=== PATIENT | male | born 1985 | race Caucasian/White ===

== ENCOUNTER 2018-12-12 04:49 | Emergency (ER) | payer OTHER ==
[2018-12-12 05:10] VITALS: BP 123/84; PULSE 73; RESP 20; TEMP 98.2
--- NOTE | 2018-12-12 06:59 | ED ---
ENT HPI - General Chief complaint: ENT Stated complaint: Swollen neck Time Seen by Provider: 12/12/18 05:08 Source: patient Mode of arrival: ambulatory Limitations: no limitations - History of Present Illness Initial comments: This patient is a 33-year-old man who presents to be evaluated for a lump that he had noted to the anterior of his neck. The patient states that it had come on for days ago and has been growing slowly over the ensuing 4 days. He states he also had another lengthy noted under the muscle on the right side of the neck. Patient also is having a little bit of pain when he would swallow and the lump was moved. He has not noted fever or chills, cough, dysphagia, any problem with speech or swallowing. MD complaint: sore throat, other Onset/Timin -: days(s) Location: throat Severity: mild Quality: dull Consistency: constant Improves with: none Worsens with: swallowing - Related Data Home Medications Medication Instructions Recorded Confirmed No Known Home Medications 12/12/18 12/12/18 Allergies Allergy/AdvReac Type Severity Reaction Status Date / Time No Known Allergies Allergy Verified 12/12/18 05:10 Review of Systems ROS Statement: Those systems with pertinent positive or pertinent negative responses have been documented in the HPI. ROS Other: All systems not noted in ROS Statement are negative. Constitutional: Denies: fever, chills ENT: Reports: throat pain. Denies: ear pain, congestion Respiratory: Denies: cough, dyspnea Cardiovascular: Denies: chest pain Skin: Denies: rash Neurological: Denies: headache Past Medical History Past Medical History: No Reported History History of Any Multi-Drug Resistant Organisms: None Reported Past Surgical History: Hernia Repair Past Psychological History: No Psychological Hx Reported Smoking Status: Current every day smoker Past Alcohol Use History: None Reported Past Drug Use History: None Reported General Exam Limitations: no limitations General appearance: alert, in no apparent distress Head exam: Present: atraumatic, normocephalic Eye exam: Present: normal appearance. Absent: scleral icterus, conjunctival injection ENT exam: Present: mucous membranes moist, TM's normal bilaterally, normal external ear exam, other (There is some mild injection of the pharynx.). Absent: normal oropharynx Neck exam: Present: normal inspection, full ROM, lymphadenopathy, other (There is an approximately 1 cm nodule to the right anterior neck. There is also lymphadenopathy.). Absent: tenderness, meningismus, thyromegaly Respiratory exam: Present: normal lung sounds bilaterally. Absent: respiratory distress, wheezes, rales, rhonchi, stridor Cardiovascular Exam: Present: regular rate, normal rhythm, normal heart sounds. Absent: systolic murmur, diastolic murmur, rubs, gallop Skin exam: Present: warm, dry, intact, normal color. Absent: rash Course Vital Signs 12/12/18 05:05 Temperature 98.2 F Pulse Rate 73 Respiratory 20 Rate Blood Pressure 123/84 O2 Sat by Pulse 99 Oximetry Medical Decision Making - Medical Decision Making Patient's 33-year-old man with some mild pharyngitis and lymphadenopathy. We discussed results of the swab. We discussed appropriate further care and follow-up as well as the need for imaging should the nodule persist or should it grow. He'll follow-up to have ultrasound/computed tomography scan should these conditions. - Lab Data Lab Results 12/12/18 Range/Units 06:05 Group A Strep Rapid Negative (Negative) Disposition Clinical Impression: Pharyngitis Disposition: HOME SELF-CARE Condition: Good Instructions (If sedation given, give patient instructions): Pharyngitis (ED) Additional Instructions: As we discussed, if the nodes do not return to normal in 2 weeks then returned to have imaging as we discussed, either ultrasound or computed tomography scan. Is patient prescribed a controlled substance at d/c from ED?: No Referrals: None,Stated [Primary Care Provider] - 1-2 days
== END 2018-12-12 07:00 | disposition home or self-care (01) ==
LOC: EC 04:49
DX: J02.9 Acute pharyngitis, unspecified (principal); F17.200 Nicotine dependence, unspecified, uncomplicated
CPT/HCPCS: 87081; 87430; 99283

== ENCOUNTER 2020-06-29 19:59 | Emergency (ER) | payer OTHER ==
[2020-06-29] MEDS ORDERED: KETOROLAC 15 MG/ML 1 ML VIAL IVP STA (20:45)
[2020-06-29] MEDS ORDERED: ONDANSETRON 4 MG/2 ML VIAL IVP STA (20:45)
[2020-06-29] MEDS ORDERED: SODIUM CHLORIDE 0.9% 1,000 ML IV STA (20:45)
--- NOTE | 2020-06-29 21:31 | ED ---
General Adult HPI - General Chief complaint: Abdominal Pain Stated complaint: Abd Pain Source: patient Mode of arrival: ambulatory Limitations: no limitations - History of Present Illness Initial comments: 34-year-old male presents to the emergency room for a chief complaint of a bdominal pain. Patient reports he has had abdominal pain for about 16 hours now. Patient states this started this morning. States the pain is all around his abdomen and comes and goes especially when he needs to have a bowel movement. States he has had several episodes of diarrhea. He has also had nausea without vomiting. Patient states he is not sure if he ate something that caused this. Patient states he was tested positive for Covid about 16 days ago. He denies any persistent fevers.Patient has no other complaints at this time including shortness of breath, chest pain, nausea or vomiting, headache, or visual changes. - Related Data Home Medications Medication Instructions Recorded Confirmed No Known Home Medications 12/12/18 06/29/20 Allergies Allergy/AdvReac Type Severity Reaction Status Date / Time No Known Allergies Allergy Verified 06/29/20 21:26 Review of Systems ROS Statement: Those systems with pertinent positive or pertinent negative responses have been documented in the HPI. ROS Other: All systems not noted in ROS Statement are negative. Past Medical History Past Medical History: No Reported History History of Any Multi-Drug Resistant Organisms: None Reported Past Surgical History: Hernia Repair Past Psychological History: No Psychological Hx Reported Smoking Status: Current every day smoker Past Alcohol Use History: None Reported Past Drug Use History: Marijuana General Exam Limitations: no limitations General appearance: alert, in no apparent distress Head exam: Present: atraumatic, normocephalic, normal inspection Eye exam: Present: normal appearance, PERRL, EOMI. Absent: scleral icterus, conjunctival injection, periorbital swelling ENT exam: Present: normal exam, mucous membranes moist Neck exam: Present: normal inspection, full ROM. Absent: tenderness, meningismus, lymphadenopathy Respiratory exam: Present: normal lung sounds bilaterally. Absent: respiratory distress, wheezes, rales, rhonchi, stridor Cardiovascular Exam: Present: regular rate, normal rhythm, normal heart sounds. Absent: systolic murmur, diastolic murmur, rubs, gallop, clicks GI/Abdominal exam: Present: soft, normal bowel sounds. Absent: distended, tenderness (no tenderness), guarding, rebound, rigid Course Vital Signs 06/29/20 06/29/20 20:12 21:18 Temperature 98.6 F Pulse Rate 89 82 Respiratory 18 18 Rate Blood Pressure 126/86 134/89 O2 Sat by Pulse 100 100 Oximetry Medical Decision Making - Medical Decision Making Vitals are stable. Patient is well-appearing. Abdomen is nontender. CBC CMP unremarkable. Urinalysis is negative. Diarrhea could be related to g astroenteritis, could also be related to COVID. At this time patient reassessed and is feeling much better. Abdominal pain. A repeat abdominal exam shows a nontender abdomen. Recommend Him to follow up with primary care. He will return here for any worsening symptoms. - Lab Data Result diagrams: 06/29/20 21:14 06/29/20 21:14 Lab Results 06/29/20 06/29/20 06/29/20 Range/Units 21:14 21:14 21:14 WBC 9.6 (3.8-10.6) k/uL RBC 4.95 (4.30-5.90) m/uL Hgb 14.8 (13.0-17.5) gm/dL Hct 43.8 (39.0-53.0) % MCV 88.5 (80.0-100.0) fL MCH 29.9 (25.0-35.0) pg MCHC 33.8 (31.0-37.0) g/dL RDW 13.2 (11.5-15.5) % Plt Count 328 (150-450) k/uL MPV 7.1 Neutrophils % 58 % Lymphocytes % 30 % Monocytes % 8 % Eosinophils % 2 % Basophils % 1 % Neutrophils # 5.6 (1.3-7.7) k/uL Lymphocytes # 2.9 (1.0-4.8) k/uL Monocytes # 0.7 (0-1.0) k/uL Eosinophils # 0.2 (0-0.7) k/uL Basophils # 0.1 (0-0.2) k/uL Sodium 138 (137-145) mmol/L Potassium 4.1 (3.5-5.1) mmol/L Chloride 103 (98-107) mmol/L Carbon Dioxide 26 (22-30) mmol/L Anion Gap 9 mmol/L BUN 16 (9-20) mg/dL Creatinine 0.95 (0.66-1.25) mg/dL Est GFR (CKD-EPI)AfAm >90 (>60 ml/min/1.73 sqM) Est GFR (CKD-EPI)NonAf >90 (>60 ml/min/1.73 sqM) Glucose 85 (74-99) mg/dL Calcium 9.8 (8.4-10.2) mg/dL Total Bilirubin 0.6 (0.2-1.3) mg/dL AST 25 (17-59) U/L ALT 16 (4-49) U/L Alkaline Phosphatase 51 (38-126) U/L Total Protein 7.4 (6.3-8.2) g/dL Albumin 4.6 (3.5-5.0) g/dL Lipase 245 (23-300) U/L Urine Color Yellow Urine Appearance Clear (Clear) Urine pH 6.5 (5.0-8.0) Ur Specific [place] 1.023 (1.001-1.035) Urine Protein Negative (Negative) Urine Glucose (UA) Negative (Negative) Urine Ketones Negative (Negative) Urine Blood Negative (Negative) Urine Nitrite Negative (Negative) Urine Bilirubin Negative (Negative) Urine Urobilinogen <2.0 (<2.0) mg/dL Ur Leukocyte Esterase Negative (Negative) Disposition Clinical Impression: Diarrhea Disposition: HOME SELF-CARE Condition: Good Instructions (If sedation given, give patient instructions): Acute Diarrhea (ED) Additional Instructions: Please drink plenty of fluids. Please follow-up with primary care in 1-2 days. Return to the emergency room for any worsening symptoms. Is patient prescribed a controlled substance at d/c from ED?: No Referrals: Thi Miller MD [REFERRING] - 1-2 days Time of Disposition: 21:51
[2020-06-29 21:33] LABS: Basophils # (A) 0.1 k/uL (0-0.2); Basophils % (A) 1 %; Eosinophils # (A) 0.2 k/uL (0-0.7); Eosinophils % (A) 2 %; HCT 43.8 % (39.0-53.0); HGB 14.8 gm/dL (13.0-17.5); Lymphocytes # (A) 2.9 k/uL (1.0-4.8); Lymphocytes % (A) 30 %; MCH 29.9 pg (25.0-35.0); MCHC 33.8 g/dL (31.0-37.0); MCV 88.5 fL (80.0-100.0); Mean Platelet Volume 7.1; Monocytes # (A) 0.7 k/uL (0-1.0); Monocytes % (A) 8 %; Neutrophils # (A) 5.6 k/uL (1.3-7.7); Neutrophils % (A) 58 %; Platelet Count 328 k/uL (150-450); RBC 4.95 m/uL (4.30-5.90); RDW 13.2 % (11.5-15.5); WBC 9.6 k/uL (3.8-10.6)
[2020-06-29 21:39] LABS: ALT 16 U/L (4-49); AST 25 U/L (17-59); African American GFR (CKD) >90 (>60 ml/min/1.73 sqM); Albumin 4.6 g/dL (3.5-5.0); Alkaline Phosphatase 51 U/L (38-126); Anion Gap 9 mmol/L; Blood Urea Nitrogen 16 mg/dL (9-20); Calcium 9.8 mg/dL (8.4-10.2); Carbon Dioxide 26 mmol/L (22-30); Chloride 103 mmol/L (98-107); Glucose 85 mg/dL (74-99); Lipase 245 U/L (23-300); Non-African American GFR(CKD) >90 (>60 ml/min/1.73 sqM); Potassium 4.1 mmol/L (3.5-5.1); Sodium 138 mmol/L (137-145); Total Bilirubin 0.6 mg/dL (0.2-1.3); Total Protein 7.4 g/dL (6.3-8.2)
[2020-06-29 21:42] LABS: Appearance,Urine Clear (Clear); Bilirubin,Urine Negative (Negative); Blood,Urine Negative (Negative); Color,Urine Yellow; Glucose,Urine (UA) Negative (Negative); Ketones,Urine Negative (Negative); Leukocyte Esterase,Urine Negative (Negative); Nitrite,Urine Negative (Negative); PH, Urine 6.5 (5.0-8.0); Protein,Urine Negative (Negative); Specific Gravity,Urine 1.023 (1.001-1.035); Urobilinogen,Urine <2.0 mg/dL (<2.0)
[2020-06-29 22:09] VITALS: BP 116/82; PULSE 69; RESP 16; TEMP 98.4
== END 2020-06-29 22:29 | disposition home or self-care (01) ==
LOC: EC 19:59
DX: R19.7 Diarrhea, unspecified (principal); R10.9 Unspecified abdominal pain; F17.200 Nicotine dependence, unspecified, uncomplicated; F12.90 Cannabis use, unspecified, uncomplicated
CPT/HCPCS: 36415; 80053; 83690; 85025; 81003; 99284; 96374; 96375; 96361; J2405; J1885

== ENCOUNTER 2020-10-11 00:40 | Emergency (ER) | payer OTHER ==
[2020-10-11 00:51] VITALS: BP 137/74; PULSE 78; RESP 18; TEMP 98.4
[2020-10-11] MEDS ORDERED: KETOROLAC 15 MG/ML 1 ML VIAL IVP STA (01:17)
[2020-10-11 01:46] LABS: Appearance,Urine Clear (Clear); Basophils # (A) 0.1 k/uL (0-0.2); Basophils % (A) 1 %; Bilirubin,Urine Negative (Negative); Blood,Urine Negative (Negative); Color,Urine Yellow; Eosinophils # (A) 0.4 k/uL (0-0.7); Eosinophils % (A) 3 %; Glucose,Urine (UA) Negative (Negative); HCT 43.5 % (39.0-53.0); HGB 15.3 gm/dL (13.0-17.5); Ketones,Urine Negative (Negative); Leukocyte Esterase,Urine Negative (Negative); Lymphocytes % (A) 26 %; MCH 30.9 pg (25.0-35.0); MCHC 35.1 g/dL (31.0-37.0); MCV 88.1 fL (80.0-100.0); Mean Platelet Volume 7.3; Monocytes # (A) 0.7 k/uL (0-1.0); Monocytes % (A) 6 %; Neutrophils # (A) 7.3 k/uL (1.3-7.7); Neutrophils % (A) 63 %; Nitrite,Urine Negative (Negative); PH, Urine 6.5 (5.0-8.0); Platelet Count 256 k/uL (150-450); Protein,Urine Negative (Negative); RBC 4.94 m/uL (4.30-5.90); RDW 12.7 % (11.5-15.5); Specific Gravity,Urine 1.018 (1.001-1.035); Urobilinogen,Urine <2.0 mg/dL (<2.0); WBC 11.6 k/uL (3.8-10.6)
--- NOTE | 2020-10-11 01:48 | CT ---
EXAMINATION TYPE: CT abdomen pelvis wo con DATE OF EXAM: 10/11/2020 COMPARISON: None HISTORY: right flank pain CT DLP: 378.8 mGycm Automated exposure control for dose reduction was used. Lung bases are clear of infiltrate. There is no pleural effusion. Heart size is normal. There is no p ericardial effusion. Liver spleen stomach pancreas appear intact. The bile ducts are not dilated. Gallbladder is somewhat contracted. There is small calcified splenic granuloma. There is no adrenal mass. Kidneys have normal size. I see no hydronephrosis. Ureters are not dilated. There is no retroperitoneal adenopathy. Bladder distends smoothly. There is no inguinal hernia. Ther e is no evidence of a pelvic mass. There is no sign of free fluid in the pelvis. There is 7 mm phlebo lith in the pelvis on the left side. Exam is limited by lack of any contrast. The cecum is low in the pelvis. The appendix is somewhat lat eral and adjacent to the lateral pelvic sidewall and best seen on the coronal image 59 with air. Appe ndix appears normal. There is bilateral L5 spondylolysis without significant spondylolisthesis. There is 4 mm subluxation. There is slight narrowing of the L5-S1 disc space. The bony pelvis is intact. The hip joints are int act. IMPRESSION: No evidence of renal stone or obstruction. Normal appendix. No sign of acute abdomen and pelvis.
[2020-10-11 02:04] LABS: ALT 24 U/L (4-49); AST 32 U/L (17-59); African American GFR (CKD) >90 (>60 ml/min/1.73 sqM); Albumin 4.7 g/dL (3.5-5.0); Alkaline Phosphatase 66 U/L (38-126); Anion Gap 10 mmol/L; Blood Urea Nitrogen 15 mg/dL (9-20); Calcium 9.9 mg/dL (8.4-10.2); Carbon Dioxide 28 mmol/L (22-30); Chloride 102 mmol/L (98-107); Glucose 86 mg/dL (74-99); Lipase 40 U/L (23-300); Non-African American GFR(CKD) >90 (>60 ml/min/1.73 sqM); Potassium 4.2 mmol/L (3.5-5.1); Sodium 140 mmol/L (137-145); Total Bilirubin 0.2 mg/dL (0.2-1.3); Total Protein 7.3 g/dL (6.3-8.2)
--- NOTE | 2020-10-11 02:11 | ED ---
Abdominal Pain HPI - General Chief Complaint: Abdominal Pain Stated Complaint: Abd Pain Time Seen by Provider: 10/11/20 00:53 Source: patient Mode of arrival: ambulatory Limitations: no limitations - History of Present Illness Initial Comments: 35 year-old male patient presents to the emergency department for evaluation of abdominal pain. States that he has been having pain to the right mid abdomen that occasionally radiates to his "kidney" on and off for the last three weeks. States that it does seem worse when he moves. If he presses over the area he feels nauseous. Denies any vomiting, diarrhea, or constipation. Denies any fever or chills. Denies any hematuria, dysuria, urinary urgency, or urinary frequency. Has had left inguinal hernia repair in the past. No other abdominal surgeries. Patient denies any recent rash, cough, shortness of breath, chest pain, numbness, tingling, dizziness, weakness, headache, visual changes, or any other complaints. - Related Data Home Medications Medication Instructions Recorded Confirmed No Known Home Medications 12/12/18 06/29/20 Allergies Allergy/AdvReac Type Severity Reaction Status Date / Time No Known Allergies Allergy Verified 10/11/20 00:50 Review of Systems ROS Statement: Those systems with pertinent positive or pertinent negative responses have been documented in the HPI. ROS Other: All systems not noted in ROS Statement are negative. Past Medical History Past Medical History: No Reported History History of Any Multi-Drug Resistant Organisms: None Reported Past Surgical History: Hernia Repair Past Psychological History: No Psychological Hx Reported Smoking Status: Current every day smoker Past Alcohol Use History: None Reported Past Drug Use History: Marijuana General Exam Limitations: no limitations General appearance: alert, in no apparent distress, other (This is a well-developed, well-nourished adult male patient in no acute distress. Vital signs upon presentation 98.4F, pulse 78, respirations 18, blood pressure 137/74, pulse ox 99% on room air.) Eye exam: Present: normal appearance, PERRL, EOMI. Absent: scleral icterus, conjunctival injection, periorbital swelling ENT exam: Present: normal exam, normal oropharynx, mucous membranes moist Respiratory exam: Present: normal lung sounds bilaterally. Absent: respiratory distress, wheezes, rales, rhonchi, stridor Cardiovascular Exam: Present: regular rate, normal rhythm, normal heart sounds. Absent: systolic murmur, diastolic murmur, rubs, gallop, clicks GI/Abdominal exam: Present: soft, tenderness (Right mid abdominal tenderness), normal bowel sounds. Absent: distended, guarding, rebound, rigid Back exam: Present: normal inspection. Absent: CVA tenderness (R), CVA tenderness (L) Neurological exam: Present: alert, oriented X3, CN II-XII intact Psychiatric exam: Present: normal affect, normal mood Skin exam: Present: warm, dry, intact, normal color. Absent: rash Course Vital Signs 10/11/20 00:49 Temperature 98.4 F Pulse Rate 78 Respiratory 18 Rate Blood Pressure 137/74 O2 Sat by Pulse 99 Oximetry Medical Decision Making - Medical Decision Making 35-year-old male patient presents to the emergency department today for evaluation of right mid abdominal pain occasionally radiating through to his back. Physical examination does reveal right mid abdominal tenderness. No CVA tenderness. He is afebrile, vital signs. Labs reviewed and did reveal white blood cell count of 11.6. CT abdomen and pelvis was obtained and was negative. Upon reevaluation is resting comfortably in bed. Did discuss findings and results with him. He does feel called will be discharged home at this time. He is instructed to follow-up with his primary care physician for recheck in 1-2 days. Return parameters discussed in detail. He verbalizes understanding and agrees with this plan. Case discussed with my attending Dr. Stanley. - Lab Data Result diagrams: 10/11/20 01:38 10/11/20 01:38 Lab Results 10/11/20 10/11/20 10/11/20 Range/Units 01:38 01:38 01:38 WBC 11.6 H (3.8-10.6) k/uL RBC 4.94 (4.30-5.90) m/uL Hgb 15.3 (13.0-17.5) gm/dL Hct 43.5 (39.0-53.0) % MCV 88.1 (80.0-100.0) fL MCH 30.9 (25.0-35.0) pg MCHC 35.1 (31.0-37.0) g/dL RDW 12.7 (11.5-15.5) % Plt Count 256 (150-450) k/uL MPV 7.3 Neutrophils % 63 % Lymphocytes % 26 % Monocytes % 6 % Eosinophils % 3 % Basophils % 1 % Neutrophils # 7.3 (1.3-7.7) k/uL Lymphocytes # 3.0 (1.0-4.8) k/uL Monocytes # 0.7 (0-1.0) k/uL Eosinophils # 0.4 (0-0.7) k/uL Basophils # 0.1 (0-0.2) k/uL Sodium 140 (137-145) mmol/L Potassium 4.2 (3.5-5.1) mmol/L Chloride 102 (98-107) mmol/L Carbon Dioxide 28 (22-30) mmol/L Anion Gap 10 mmol/L BUN 15 (9-20) mg/dL Creatinine 0.97 (0.66-1.25) mg/dL Est GFR (CKD-EPI)AfAm >90 (>60 ml/min/1.73 sqM) Est GFR (CKD-EPI)NonAf >90 (>60 ml/min/1.73 sqM) Glucose 86 (74-99) mg/dL Calcium 9.9 (8.4-10.2) mg/dL Total Bilirubin 0.2 (0.2-1.3) mg/dL AST 32 (17-59) U/L ALT 24 (4-49) U/L Alkaline Phosphatase 66 (38-126) U/L Total Protein 7.3 (6.3-8.2) g/dL Albumin 4.7 (3.5-5.0) g/dL Lipase 40 (23-300) U/L Urine Color Yellow Urine Appearance Clear (Clear) Urine pH 6.5 (5.0-8.0) Ur Specific [place] 1.018 (1.001-1.035) Urine Protein Negative (Negative) Urine Glucose (UA) Negative (Negative) Urine Ketones Negative (Negative) Urine Blood Negative (Negative) Urine Nitrite Negative (Negative) Urine Bilirubin Negative (Negative) Urine Urobilinogen <2.0 (<2.0) mg/dL Ur Leukocyte Esterase Negative (Negative) - Radiology Data Radiology results: report reviewed, image reviewed CT abdomen and pelvis without contrast was obtained. Report was reviewed in its entirety. Impression by Dr. Worthington shows no evidence of renal stone or obstruction. Normal appendix. No sign of acute abdomen and pelvis. Disposition Clinical Impression: Abdominal pain Disposition: HOME SELF-CARE Condition: Good Instructions (If sedation given, give patient instructions): Muscle Strain (ED), Abdominal Pain (ED) Additional Instructions: Follow-up through primary care physician for recheck in 1-2 days. Return for any new, worsening, or concerning symptoms Is patient prescribed a controlled substance at d/c from ED?: No Referrals: None,Stated [Primary Care Provider] - 1-2 days Time of Disposition: 02:11
== END 2020-10-11 02:18 | disposition home or self-care (01) ==
LOC: EC 00:40
DX: R10.9 Unspecified abdominal pain (principal); F17.200 Nicotine dependence, unspecified, uncomplicated; F12.90 Cannabis use, unspecified, uncomplicated
CPT/HCPCS: 36415; 80053; 83690; 85025; 81003; 74176; 99284; 96374; J1885

== ENCOUNTER 2021-01-02 15:41 | Emergency (ER) | payer SELFPAY ==
[2021-01-02 16:50] VITALS: BP 125/80; PULSE 80; RESP 20; TEMP 98.2
[2021-01-02] MEDS ORDERED: DIPH,PERTUS(ACELL)TETVAC-LF 0.5 ML VIAL IM ONE (18:35)
--- NOTE | 2021-01-02 19:16 | ED ---
Lower Extremity Injury HPI - General Chief Complaint: Extremity Injury, Lower Stated Complaint: R foot laceration Source: patient Mode of arrival: ambulatory Limitations: no limitations - History of Present Illness Initial Comments: 35-year-old male presents emergency department with puncture wound to his right foot. He states he stepped on a staple. Presenting for tetanus shot. No active bleeding. No signs of infection. Patient was wearing a shoe. Incident happened earlier today. No other alleviating, precipitating or modifying factors - Related Data Previous Rx's Medication Instructions Recorded RX: Ciprofloxacin HCl [Cipro] 500 mg PO Q12HR 1 Days #10 tab 01/02/21 Allergies Allergy/AdvReac Type Severity Reaction Status Date / Time No Known Allergies Allergy Verified 01/02/21 16:48 Review of Systems ROS Statement: Those systems with pertinent positive or pertinent negative responses have been documented in the HPI. ROS Other: All systems not noted in ROS Statement are negative. Past Medical History Past Medical History: No Reported History History of Any Multi-Drug Resistant Organisms: None Reported Past Surgical History: Hernia Repair Past Psychological History: No Psychological Hx Reported Smoking Status: Current every day smoker Past Alcohol Use History: None Reported Past Drug Use History: Marijuana General Exam Limitations: no limitations Course Vital Signs 01/02/21 16:48 Temperature 98.2 F Pulse Rate 80 Respiratory 20 Rate Blood Pressure 125/80 O2 Sat by Pulse 100 Oximetry Medical Decision Making - Medical Decision Making Upon arrival patient placed into a damon bed 10. Tetanus is updated. He is sent over for an x-ray which demonstrates no acute fractures or retained foreign bodies. Patient will be placed on Cipro for 5 days. Side effect profile discussed. He is to follow-up with his primary care doctor in 2-4 days. Return to the emergency room for any new or worsening symptoms for patient was discharged home in stable condition Disposition Clinical Impression: Puncture wound of foot Disposition: HOME SELF-CARE Condition: Stable Instructions (If sedation given, give patient instructions): Puncture Wound (ED) Additional Instructions: Please follow up with your PCP in 2-4 days. Return to the ED for any new or worsening symptoms. Prescriptions: RX: Ciprofloxacin HCl [Cipro] 500 mg PO Q12HR 1 Days #10 tab Is patient prescribed a controlled substance at d/c from ED?: No Referrals: None,Stated [Primary Care Provider] - 1-2 days Time of Disposition: 19:16
--- NOTE | 2021-01-02 19:49 | XR ---
EXAMINATION TYPE: XR foot complete RT DATE OF EXAM: 01/02/2021 COMPARISON: NONE HISTORY: Pain Stepped on a nail TECHNIQUE: 3 views FINDINGS: Metatarsals appear intact. I see no fracture nor dislocation. There is no sign of a radiopa que foreign body. Joint spaces are normal. IMPRESSION: No evidence of a foreign body.
== END 2021-01-02 19:26 | disposition home or self-care (01) ==
LOC: EC 15:41
DX: S91.331A Puncture wound without foreign body, right foot, initial encounter (principal); F17.200 Nicotine dependence, unspecified, uncomplicated; F12.90 Cannabis use, unspecified, uncomplicated; W26.8XXA Contact with other sharp object(s), not elsewhere classified, initial encounter
CPT/HCPCS: 90471; 90715; 99283

== ENCOUNTER 2021-03-31 12:04 | Emergency (ER) | payer OTHER ==
[2021-03-31 12:28] VITALS: TEMP 98.1
[2021-03-31] MEDS ORDERED: AMOXICILLIN 500 MG CAP PO STA (13:40)
[2021-03-31] MEDS ORDERED: AMOXICILLIN 500MG STARTER PACK 3 CAP BTL PO STA (13:41)
[2021-03-31] MEDS ORDERED: predniSONE 50 MG TAB PO STA (13:41)
--- NOTE | 2021-03-31 13:46 | ED ---
General Adult HPI - General Chief complaint: ENT Stated complaint: Sore throat Time Seen by Provider: 03/31/21 12:25 Source: patient, RN notes reviewed, old records reviewed Mode of arrival: ambulatory Limitations: no limitations - History of Present Illness Initial comments: This is a 35-year-old male who presents emergency Department complaining of sore throat last couple of days. Patient states there is some white exudate on his tonsils. Patient comes in to be evaluated for this. Patient states he thinks he had a fever but didn't take his temperature. Patient states he doesn't have any insurance for medications. Patient states he does hurt to swallow. Patient denies any shortness of breath or difficulty breathing. Patient denies any ch est pain. Patient has any abdominal pain. - Related Data Previous Rx's Medication Instructions Recorded Ciprofloxacin HCl [Cipro] 500 mg PO Q12HR 1 Days #10 tab 01/02/21 Amoxicillin 500 mg PO Q8H #30 capsule 03/31/21 predniSONE [Deltasone] 40 mg PO DAILY #8 tab 03/31/21 Allergies Allergy/AdvReac Type Severity Reaction Status Date / Time No Known Allergies Allergy Verified 03/31/21 12:28 Review of Systems ROS Statement: Those systems with pertinent positive or pertinent negative responses have been documented in the HPI. ROS Other: All systems not noted in ROS Statement are negative. Past Medical History Past Medical History: No Reported History History of Any Multi-Drug Resistant Organisms: None Reported Past Surgical History: Hernia Repair Past Psychological History: No Psychological Hx Reported Smoking Status: Current every day smoker Past Alcohol Use History: None Reported Past Drug Use History: Marijuana General Exam - General Exam Comments Initial Comments: GENERAL: Patient is well-developed and well-nourished. Patient is nontoxic and well- hydrated and is in mild distress. ENT: Neck is soft and supple. No significant lymphadenopathy is noted. Erythematous tonsils with some exudate on the left tonsil there is no bulging of the tonsillar area or indication of any abscess. Moist mucous membranes. Neck has full range of motion without eliciting any pain. EYES: The sclera were anicteric and conjunctiva were pink and moist. Extraocular movements were intact and pupils were equal round and reactive to light. Eyelids were unremarkable. SKIN: Skin is clear with no lesions or rashes and otherwise unremarkable. NEUROLOGIC: Patient is alert and oriented x3. Cranial nerves II through XII are grossly intact. Motor and sensory are also intact. Normal speech, volume and content. Symmetrical smile. MUSCULOSKELETAL: Normal extremities with adequate strength and full range of motion. LYMPHATICS: No significant lymphadenopathy is noted PSYCHIATRIC: Normal psychiatric evaluation. Limitations: no limitations Course Vital Signs 03/31/21 12:24 Temperature 98.1 F Pulse Rate 99 Respiratory 18 Rate Blood Pressure 119/82 O2 Sat by Pulse 100 Oximetry Medical Decision Making - Medical Decision Making Patient received amoxicillin and prednisone in the emergency department. - Lab Data Lab Results 03/31/21 03/31/21 Range/Units 12:36 12:36 Influenza Type A (PCR) Not Detected (Not Detectd) Influenza Type B (PCR) Not Detected (Not Detectd) RSV (PCR) Not Detected (Not Detectd) SARS-CoV-2 (PCR) Not Detected (Not Detectd) Group A Strep Rapid Positive A (Negative) Disposition Clinical Impression: Strep throat Disposition: HOME SELF-CARE Condition: Good Instructions (If sedation given, give patient instructions): Strep Throat (ED) Prescriptions: Amoxicillin 500 mg PO Q8H #30 capsule predniSONE [Deltasone] 40 mg PO DAILY #8 tab Referrals: None,Stated [Primary Care Provider] - 1-2 days Time of Disposition: 13:46
[2021-03-31 16:01] VITALS: BP 110/76; PULSE 76; RESP 16
== END 2021-03-31 14:16 | disposition home or self-care (01) ==
LOC: EC 12:04
DX: J02.0 Streptococcal pharyngitis (principal); F17.200 Nicotine dependence, unspecified, uncomplicated; F12.90 Cannabis use, unspecified, uncomplicated; Z20.822 Contact with and (suspected) exposure to COVID-19
CPT/HCPCS: 99283; 87430; 87636; J7512

== ENCOUNTER 2021-07-01 02:57 | Emergency (ER) | payer OTHER ==
[2021-07-01 03:05] VITALS: BP 110/63; PULSE 93; RESP 18; TEMP 97.4
[2021-07-01] MEDS ORDERED: AMOXIC-POT CLAV 875MG STARTER PACK 2 TAB BTL PO STA (03:27)
[2021-07-01] MEDS ORDERED: IBUPROFEN 600 MG STARTER PACK 4 TAB BTL PO STA (03:27)
--- NOTE | 2021-07-01 03:30 | ED ---
ENT HPI - General Chief complaint: ENT Stated complaint: Sore Throat Time Seen by Provider: 07/01/21 03:05 Source: patient, family, RN notes reviewed, old records reviewed Mode of arrival: ambulatory Limitations: no limitations - History of Present Illness Initial comments: This is a 35-year-old male DF for evaluation patient Dese for evaluation of robin re throat shortness of severe swelling of the throat with pain in the back of the throat patient does notice white spots in the back of her throat. Patient has no medical history takes no medications. Patient does have recent history of strep throat about 3 months ago. MD complaint: sore throat -: days(s) Location: throat Severity: moderate Severity scale (1-10): 6 Quality: sharp Consistency: intermittent Improves with: none Worsens with: swallowing Associated Symptoms: fever, pain with swallowing, sore throat - Related Data Previous Rx's Medication Instructions Recorded Ciprofloxacin HCl [Cipro] 500 mg PO Q12HR 1 Days #10 tab 01/02/21 Amoxicillin 500 mg PO Q8H #30 capsule 03/31/21 predniSONE [Deltasone] 40 mg PO DAILY #8 tab 03/31/21 Amoxic-Pot Clav 875-125Mg 1 tab PO Q12HR #20 tablet 07/01/21 [Augmentin 875-125] Allergies Allergy/AdvReac Type Severity Reaction Status Date / Time No Known Allergies Allergy Verified 07/01/21 03:05 Review of Systems ROS Statement: Those systems with pertinent positive or pertinent negative responses have been documented in the HPI. ROS Other: All systems not noted in ROS Statement are negative. Past Medical History Past Medical History: No Reported History History of Any Multi-Drug Resistant Organisms: None Reported Past Surgical History: Hernia Repair Past Psychological History: No Psychological Hx Reported Smoking Status: Current every day smoker Past Alcohol Use History: None Reported Past Drug Use History: Marijuana General Exam Limitations: no limitations General appearance: alert, in no apparent distress Head exam: Present: atraumatic, normocephalic, normal inspection Eye exam: Present: normal appearance, PERRL, EOMI. Absent: scleral icterus, conjunctival injection, periorbital swelling ENT exam: Present: mucous membranes moist. Absent: normal oropharynx (Significant sore throat with edema and exudate) Neck exam: Present: normal inspection. Absent: tenderness, meningismus, lymphadenopathy Respiratory exam: Present: normal lung sounds bilaterally. Absent: respiratory distress, wheezes, rales, rhonchi, stridor Cardiovascular Exam: Present: regular rate, normal rhythm, normal heart sounds. Absent: systolic murmur, diastolic murmur, rubs, gallop, clicks GI/Abdominal exam: Present: soft, normal bowel sounds. Absent: distended, tenderness, guarding, rebound, rigid Extremities exam: Present: normal inspection, full ROM, normal capillary refill. Absent: tenderness, pedal edema, joint swelling, calf tenderness Back exam: Present: normal inspection Neurological exam: Present: alert, oriented X3, CN II-XII intact Psychiatric exam: Present: normal affect, normal mood Skin exam: Present: warm, dry, intact, normal color. Absent: rash Course Vital Signs 07/01/21 03:01 Temperature 97.4 F L Pulse Rate 93 Respiratory 18 Rate Blood Pressure 110/63 O2 Sat by Pulse 100 Oximetry - Reevaluation(s) Reevaluation #1: 07/01/21 03:28 Medical record is reviewed Reevaluation #2: 07/01/21 03:28 Patient informed of results and treatment plan, questions answered Reevaluation #3: 07/01/21 03:29 Patient feels improved Medical Decision Making - Medical Decision Making 35 male to the emergency department for evaluation severe strep throat. Patient is given antibiotics here in the ER discharged home on antibiotics able to eat and drink without difficulty Disposition Clinical Impression: Sore throat, Strep throat Disposition: HOME SELF-CARE Condition: Good Instructions (If sedation given, give patient instructions): Strep Throat (ED) Prescriptions: Amoxic-Pot Clav 875-125Mg [Augmentin 875-125] 1 tab PO Q12HR #20 tablet Is patient prescribed a controlled substance at d/c from ED?: No Referrals: None,Stated [Primary Care Provider] - 1-2 days
== END 2021-07-01 04:24 | disposition home or self-care (01) ==
LOC: EC 02:57
DX: J02.0 Streptococcal pharyngitis (principal); F17.200 Nicotine dependence, unspecified, uncomplicated; F12.90 Cannabis use, unspecified, uncomplicated
CPT/HCPCS: 99283

== ENCOUNTER 2021-07-31 22:00 | Emergency (ER) | payer OTHER ==
[2021-07-31 23:04] VITALS: BP 145/87; PULSE 94; RESP 18; TEMP 97.1
[2021-08-01] MEDS ORDERED: AMOXIC-POT CLAV 875-125MG 1 EACH TAB PO STA (02:11)
--- NOTE | 2021-08-01 02:11 | ED ---
General Adult HPI - General Chief complaint: ENT Stated complaint: Sore Throat,Fever Time Seen by Provider: 08/01/21 01:32 Source: patient, RN notes reviewed Mode of arrival: ambulatory Limitations: no limitations - History of Present Illness Initial comments: 35-year-old male presents to the emergency Department with complaints of sore throat and swollen lymph nodes 2 days. Patient states he is concerned for strep throat. States this is his third throat infection since March and is scheduled to follow-up with his PCP on Thursday, however was concerned about the infection therefore came to the emergency department for evaluation this evening. Patient denies difficulty swallowing, cough, congestion, shortness of breath, and abdominal pain. He is uncertain as to whether or not he has had a fever at home. - Related Data Previous Rx's Medication Instructions Recorded Ciprofloxacin HCl [Cipro] 500 mg PO Q12HR 1 Days #10 tab 01/02/21 Amoxicillin 500 mg PO Q8H #30 capsule 03/31/21 predniSONE [Deltasone] 40 mg PO DAILY #8 tab 03/31/21 Amoxic-Pot Clav 875-125Mg 1 tab PO Q12HR #20 tablet 07/01/21 [Augmentin 875-125] Amoxicillin/Potassium Clav 1 tab PO Q12HR 10 Days #20 tab 08/01/21 [Augmentin 875-125 Tablet] Allergies Allergy/AdvReac Type Severity Reaction Status Date / Time No Known Allergies Allergy Verified 07/31/21 23:00 Review of Systems ROS Statement: Those systems with pertinent positive or pertinent negative responses have been documented in the HPI. ROS Other: All systems not noted in ROS Statement are negative. Past Medical History Past Medical History: No Reported History Additional Past Medical History / Comment(s): Strep throat History of Any Multi-Drug Resistant Organisms: None Reported Past Surgical History: Hernia Repair Past Psychological History: No Psychological Hx Reported Smoking Status: Current every day smoker Past Alcohol Use History: None Reported Past Drug Use History: Marijuana General Exam Limitations: no limitations (Well-developed, well-nourished male in no acute distress. Initial temperature 97.1, pulse 94, respirations 18, blood pressure 145/87, pulse ox 100% on room air.) General appearance: alert, in no apparent distress Eye exam: Present: normal appearance. Absent: scleral icterus, conjunctival injection ENT exam: Present: mucous membranes moist, TM's normal bilaterally Expanded Throat exam: tonsillar erythema, tonsillar exudate, other (Uvula midline, no palatal petechiae). negative: R peritonsillar mass, L peritonsillar mass Neck exam: Present: lymphadenopathy (Anterior cervical lymph adenopathy bilaterally) Respiratory exam: Present: normal lung sounds bilaterally. Absent: respiratory distress, wheezes, rales, rhonchi, stridor, chest wall tenderness Cardiovascular Exam: Present: regular rate, normal rhythm, normal heart sounds. Absent: systolic murmur, diastolic murmur, rubs, gallop, clicks GI/Abdominal exam: Present: soft, normal bowel sounds. Absent: distended, tenderness, guarding, rebound, rigid Neurological exam: Present: alert, oriented X3 Psychiatric exam: Present: normal affect, normal mood Skin exam: Present: warm, dry, intact, normal color. Absent: rash Course Vital Signs 07/31/21 23:00 Temperature 97.1 F L Pulse Rate 94 Respiratory 18 Rate Blood Pressure 145/87 O2 Sat by Pulse 100 Oximetry Medical Decision Making - Medical Decision Making This is a healthy 35-year-old male who presents to the emergency department for evaluation of sore throat. Upon exam, patient is well-appearing and in no acute distress. He does have tonsillar exudate and erythema; anterior cervical lymphadenopathy present. No difficulty swallowing or breathing. Center score=3 therefore patient was treated empirically and was not swabbed. He is scheduled to follow up with his PCP on Thursday and was encouraged to do so. Return parameters discussed in detail. Patient verbalizes understanding and agrees with this plan. Attending: Varun. Disposition Clinical Impression: Pharyngitis Disposition: HOME SELF-CARE Condition: Stable Instructions (If sedation given, give patient instructions): Pharyngitis (ED) Additional Instructions: Take antibiotic as directed. Consider gargling with warm salt water. Discard your toothbrush and replaced with new one. Keep your follow-up appointment with your PCP. Return to the emergency department with any new, worsening, or concerning symptoms. Prescriptions: Amoxicillin/Potassium Clav [Augmentin 875-125 Tablet] 1 tab PO Q12HR 10 Days #20 tab Is patient prescribed a controlled substance at d/c from ED?: No Referrals: Elizabeth Erazo DO [Primary Care Provider] - 1-2 days Time of Disposition: 02:11
== END 2021-08-01 02:29 | disposition home or self-care (01) ==
LOC: EC 22:00
DX: J02.9 Acute pharyngitis, unspecified (principal); F17.200 Nicotine dependence, unspecified, uncomplicated; F12.90 Cannabis use, unspecified, uncomplicated
CPT/HCPCS: 99282

== ENCOUNTER 2022-01-12 09:16 | Emergency (ER) | payer OTHER ==
[2022-01-12 09:27] VITALS: TEMP 98
[2022-01-12] MEDS ORDERED: KETOROLAC 15 MG/ML 1 ML VIAL IM STA (09:44)
--- NOTE | 2022-01-12 10:07 | XR ---
Limited single view left hip. HISTORY: Pain COMPARISON: None. TECHNIQUE: Single AP view of the left hip was obtained. FINDINGS: There is no fracture, dislocation or focal intraosseous abnormality. IMPRESSION: No significant abnormality.
--- NOTE | 2022-01-12 10:11 | XR ---
Lumbar spine. HISTORY: Back pain. COMPARISON: None. TECHNIQUE: 6 views of the lumbar spine were obtained. Flexion and extension lateral views were includ ed. FINDINGS: The lumbar vertebral segments. There is grade 1 retrolisthesis of L4 and L5. There is a grade 1 anter olisthesis of L5 on S1. There is bilateral spondylolysis of L5 . There is no significant change in th e malalignment with extension or flexion. The disc spaces are well-maintained. The visualized sacrum and SI joints are normal. IMPRESSION: 1. Bilateral spondylolysis of L5. 2. Grade 1 retrolisthesis of L4 on L5 and grade 1 anterolisthesis of L5 and S1. 3. No significant change in alignment with flexion or extension. 4. No significant disc disease.
--- NOTE | 2022-01-12 10:16 | ED ---
Back Pain HPI - General Chief Complaint: Back Pain/Injury Stated Complaint: Back pain Time Seen by Provider: 01/12/22 09:33 Source: patient, RN notes reviewed Limitations: no limitations - History of Present Illness Initial Comments: Patient is a 36-year-old male presenting to the emergency room with complaints of left upper buttocks pain radiating into his left hip and down his left leg. He reports that he has had similar symptoms that began after jumping off of a trampoline several months ago. He never had a formal evaluation after that event but has been following with a chiropractor. He reports that after recent adjustment with a chiropractor symptoms seem to become more severe and not controlled with ibuprofen that he was taking at home. He denies any range of motion impairment not due to pain, no focal neurological deficits, bowel or bladder incontinence, saddle paresthesia or other red flag symptoms of cauda equina. He has no other significant past medical history. - Related Data Previous Rx's Medication Instructions Recorded Ciprofloxacin HCl [Cipro] 500 mg PO Q12HR 1 Days #10 tab 01/02/21 Amoxicillin 500 mg PO Q8H #30 capsule 03/31/21 predniSONE [Deltasone] 40 mg PO DAILY #8 tab 03/31/21 Amoxic-Pot Clav 875-125Mg 1 tab PO Q12HR #20 tablet 07/01/21 [Augmentin 875-125] Amoxicillin/Potassium Clav 1 tab PO Q12HR 10 Days #20 tab 08/01/21 [Augmentin 875-125 Tablet] methylPREDNISolone Dose Pack 4 mg PO DIRECTED #21 tab 01/12/22 [Medrol Dose Pack] Cyclobenzaprine [Flexeril] 10 mg PO TID PRN #20 tab 01/18/22 Ibuprofen [Motrin] 600 mg PO Q8HR PRN #30 tab 01/18/22 Allergies Allergy/AdvReac Type Severity Reaction Status Date / Time No Known Allergies Allergy Verified 01/18/22 17:09 Review of Systems ROS Statement: Those systems with pertinent positive or pertinent negative responses have been documented in the HPI. ROS Other: All systems not noted in ROS Statement are negative. Past Medical History Past Medical History: Musculoskeletal Disorder (Lower back pain with sciatica) History of Any Multi-Drug Resistant Organisms: None Reported Past Surgical History: Hernia Repair Past Psychological History: No Psychological Hx Reported Smoking Status: Current every day smoker Past Alcohol Use History: None Reported Past Drug Use History: Marijuana General Exam Limitations: no limitations General appearance: alert, in no apparent distress Head exam: Present: atraumatic, normocephalic, normal inspection Eye exam: Present: normal appearance, PERRL, EOMI. Absent: scleral icterus, conjunctival injection, periorbital swelling ENT exam: Present: normal exam, mucous membranes moist Neck exam: Present: normal inspection, full ROM Respiratory exam: Absent: respiratory distress, accessory muscle use Cardiovascular Exam: Present: regular rate GI/Abdominal exam: Absent: distended Extremities exam: Absent: pedal edema, joint swelling Left Hip exam: Absent: full ROM (limited by pain), swelling, deformity, crepitus, dislocation, external rotation, internal rotation, shortening, pelvic stability Gait: observed and limited by pain Back exam: Present: normal inspection. Absent: tenderness, paraspinal tenderness, vertebral tenderness Neurological exam: Present: alert, oriented X3, CN II-XII intact Psychiatric exam: Present: normal affect, normal mood Skin exam: Present: warm, dry, intact, normal color. Absent: rash Course Vital Signs 01/12/22 01/12/22 09:24 11:55 Temperature 98 F 98 F Pulse Rate 80 83 Respiratory 16 18 Rate Blood Pressure 118/83 118/81 O2 Sat by Pulse 100 100 Oximetry Medical Decision Making - Medical Decision Making 36-year-old male presenting to the emergency room with complaints of worsening back pain with left-sided sciatica primarily pain to the left hip region and down the left leg. No previous workup after injury and [place] of this year. Will check x-ray of the lumbar spine along with the left hip. No indication for laboratory studies. Will give Toradol for pain and monitor response. Still with pain after Toradol will give dose of morphine. X-ray of the left hip revealed no significant abnormalities. X-ray of the spine shows grade 11 retrolisthesis of L4 and L5 and grade 1 anterior lithiasis at L5 and S1 which are likely causing symptoms he is experiencing. No significant change with alignment flexion or extension. No disc disease. Findings reviewed with patient and recommended follow-up with primary care provider along with possible orthopedic solutions specialist if symptoms can continue. Will discharge home on a Medrol Dosepak. Advised no NSAIDs while taking Medrol Dosepak and use Tylenol for pain. Range of motion as tolerated encouraged. Advised to avoid heavy liftin g. Case discussed with Dr. Jorgensen. - Radiology Data Radiology results: report reviewed, image reviewed X-ray left hip shows no significant abnormalities, no fracture, dislocation or focal intraosseous abnormality. X-ray of the lumbar spine showed bilateral spondylolysis of L5. Grade 1 retrolisthesis of L4 on L5 and grade 1 anterolisthesis of L5 and S1. No sig nificant change in alignment with flexion or extension. No significant disc disease. Disposition Clinical Impression: Lumbago with sciatica, left side Disposition: HOME SELF-CARE Condition: Stable Instructions (If sedation given, give patient instructions): Low Back Strain (ED), Lumbar Radiculopathy (ED) Additional Instructions: Complete course of Medrol Dosepak as prescribed. Utilize Tylenol as needed for pain while taking steroids. Do not take other anti-inflammatories while taking Medrol dose pack. Avoid bedrest and heavy lifting. Please follow-up with your primary care provider. Please return to the Emergency Department if symptoms wor sen or any other concerns. Prescriptions: methylPREDNISolone Dose Pack [Medrol Dose Pack] 4 mg PO DIRECTED #21 tab Is patient prescribed a controlled substance at d/c from ED?: No Referrals: Elizabeth Erazo DO [Primary Care Provider] - 1-2 days Time of Disposition: 11:17
[2022-01-12] MEDS ORDERED: MORPHINE SULFATE 4 MG/ML SYRINGE IM STA (10:50)
[2022-01-12 12:20] VITALS: BP 118/81; PULSE 83; RESP 18
== END 2022-01-12 11:55 | disposition home or self-care (01) ==
LOC: EC 09:16
DX: M54.42 Lumbago with sciatica, left side (principal); F17.200 Nicotine dependence, unspecified, uncomplicated; F12.90 Cannabis use, unspecified, uncomplicated
CPT/HCPCS: 99283; 96372 ×2; 72114; 73501; J1885

== ENCOUNTER 2022-01-18 16:23 | Emergency (ER) | payer OTHER ==
[2022-01-18 17:09] VITALS: RESP 18
[2022-01-18] MEDS ORDERED: IBUPROFEN 600 MG STARTER PACK 4 TAB BTL PO STA (18:03)
[2022-01-18] MEDS ORDERED: CYCLOBENZAPRINE 10MG STARTER 3 TAB BTL PO STA (18:03)
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
[2022-01-18 18:22] VITALS: BP 112/75; PULSE 83; TEMP 98.6
== END 2022-01-18 18:22 | disposition home or self-care (01) ==
LOC: EC 16:23
DX: M54.42 Lumbago with sciatica, left side (principal); G89.29 Other chronic pain; F12.90 Cannabis use, unspecified, uncomplicated; F17.210 Nicotine dependence, cigarettes, uncomplicated
CPT/HCPCS: 99283